=== PATIENT | female | born 1965 | race Hispanic/Latino ===

== ENCOUNTER 2024-04-21 14:07 | Emergency (ER) | payer BC ==
[~2024-04-21] VITALS: Ht 149.9 cm; Wt 43.1 kg
[2024-04-21] MEDS: LEVETIRACETAM 500 MG/5 ML SD VIAL IV STA (14:57)
[2024-04-21] MEDS: 0.9%NACL 1000ML 1,000 ML IV ONE (14:57)
[2024-04-21 15:01] LABS: BASOPHILS # (AUTO) 0.02 K/uL (0.00-0.20); BASOPHILS % (AUTO) 0.2 % (0.0-5.0); EOSINOPHILS # (AUTO) 0.17 K/uL (0.00-0.70); EOSINOPHILS % (AUTO) 1.9 % (0.0-8.0); HEMATOCRIT 30.5 % (36-48); IMMATURE GRANULOCYTE ABSOLUTE 0.02 K/uL (0-1); LYMPHOCYTES # (AUTO) 1.7 K/uL (1.0-4.8); LYMPHOCYTES % (AUTO) 18.9 % (21.0-51.0); MEAN CORPUSCULAR HEMOGLOBIN 28.3 pg (27.0-33.0); MEAN CORPUSCULAR HGB CONC 35.4 g/dL (32.0-36.0); MEAN CORPUSCULAR VOLUME 79.8 fL (79-99); MONOCYTES # (AUTO) 0.7 K/uL (0.1-1.0); MONOCYTES % (AUTO) 7.7 % (3.0-13.0); NEUTROPHILS # (AUTO) 6.4 K/uL (1.8-7.7); NEUTROPHILS % (AUTO) 71.1 % (40.0-77.0); PLATELET COUNT (AUTO) 195 K/uL (130-400); RED BLOOD CELL COUNT(AUTO) 3.82 MIL/uL (4.00-5.50); RED CELL DISTRIBUTION WIDTH 11.6 % (11.0-15.5)
[2024-04-21 15:11] LABS: CREATININE 0.8 mg/dL (0.5-1.0)
[2024-04-21 15:20] LABS: ALBUMIN 3.3 g/dL (3.5-5.0); BILIRUBIN,TOTAL 0.3 mg/dL (0.2-1.0)
[2024-04-21 15:25] LABS: B-TYPE NATRIURETIC PEPTIDE 22 pg/mL (0-100)
[2024-04-21 15:30] LABS: BILIRUBIN,DIRECT 0.1 mg/dL (0.0-0.3)
[2024-04-21 17:36] LABS: AMPHET/METH SCREEN,URINE NEGATIVE (NEGATIVE); BARBITURATE SCREEN, URINE NEGATIVE (NEGATIVE); BENZODIAZEPINES SCREEN,URINE NEGATIVE (NEGATIVE); CANNABINOID SCREEN,URINE NEGATIVE (NEGATIVE); COCAINE SCREEN,URINE NEGATIVE (NEGATIVE); OPIATE SCREEN,URINE NEGATIVE (NEGATIVE); PHENCYCLIDINE SCREEN,URINE NEGATIVE (NEGATIVE)
[2024-04-21 20:59] VITALS: BP 166/98; PULSE 90; RESP 18; O2SAT 98
== END 2024-04-21 21:03 | disposition left against medical advice (07) ==
LOC: EDH 14:07
DX: R56.9 Unspecified convulsions (principal); F41.9 Anxiety disorder, unspecified; E11.9 Type 2 diabetes mellitus without complications; E78.00 Pure hypercholesterolemia, unspecified; I10 Essential (primary) hypertension; Z90.49 Acquired absence of other specified parts of digestive tract
CPT/HCPCS: 99284; 96365; 70450; 71045; 80076; 84484; 80048; 83880; 80305; 85025; 36415; 93005; J1953; J7030

== ENCOUNTER 2025-10-21 05:52 | Emergency (ER) | payer BC ==
[~2025-10-21] VITALS: Ht 149.9 cm; Wt 49.9 kg
[~2025-10-21 05:52] MED LIST: AMLO5TAB4 PO; INSU200I SQ; INSU3INS3 SQ
--- NOTE | 2025-10-21 06:15 | ERN ---
General Chief Complaint: Hypertension Stated Complaint: C/O HIGH B/P, CP, SOB Time Seen by MD: 05:58 History of Present Illness Initial Comments 60-year-old female history of hypertension, diabetes here for evaluation of chest pain and shortness of breath. As per family member who was at bedside, patient developed high blood pressure about 1 hour ago and started having trouble breathing. Associated signs and symptoms include dry throat, trouble swallowing and cough. Patient states she was in her normal state of health yes terday. No sick contacts Allergies: Coded Allergies: Penicillins (Unverified Allergy, Unknown, 04/21/24) Home Meds Active Scripts Insulin Lispro (Humalog Kwikpen) 200 Unit/Ml (3 Ml) Insuln.pen, 2 UNIT SQ TID, #1 SYRINGE 1 Refill Prov:SAMANTA THORPE MD 07/13/25 Insulin Glargine,Hum.rec.anlog (Lantus Solostar) 100 Unit/Ml (3 Ml) Insuln.pen, 10 UNIT SQ HS for 30 Days, #5 ML 1 Refill Prov:SAMANTA THORPE MD 07/13/25 Amlodipine Besylate (Norvasc 5Mg Tab) 5 Mg Tablet, 5 MG PO DAILY for 30 Days, #30 TAB 1 Refill Prov:SAMANTA THORPE MD 07/13/25 Past Medical History Past Medical History: Diabetes-Type II, Hypertension Past Surgical History: Other Surgical History Other: CRANIOTOMY EENTM: (+) throat pain Respiratory: (+) short of breath Cardiovascular: (+) chest pain Review of Systems: was completed, & the rest were negative. Physical Exam General Appearance: (+) no apparent distress Orientation: (+) alert, (+) oriented x 3 Ear, Nose, Throat: (+) hearing grossly normal Ear, Nose, Throat Comment Dry lips, 2+ tonsils. No obvious exudate Neck: (+) normal inspection, (+) supple Respiratory: (+) chest non-tender, (+) well ventilated Heart: (+) regular; (-) murmur (The the I wanted Donnie Pedro's. Rachna's on has a who was at your 1st time as per day were here at the Street so we have a we need five intubation here in her I am here for the next four five days off and on carbs call Brias Maria Elena type has not really it was not really using one four year they) Results Laboratory and Microbiology Lab and Micro Result Laboratory Tests Test 10/21/25 06:23 10/21/25 07:09 10/21/25 08:10 White Blood Count 9.8 K/uL (4.8-10.8) Red Blood Count 4.03 MIL/uL (4.00-5.50) Hemoglobin 11.3 g/dL (12.0-16.0) L Hematocrit 33.0 % (36-48) L Mean Corpuscular Volume 81.9 fL (79-99) Mean Corpuscular Hemoglobin 28.0 pg (27.0-33.0) Mean Corpuscular Hemoglobin Concent 34.2 g/dL (32.0-36.0) Red Cell Distribution Width 11.9 % (11.0-15.5) Platelet Count 277 K/uL (130-400) Mean Platelet Volume 11.8 fL (7.5-10.5) H Immature Granulocyte % (Auto) 0.2 % (0-1) Neutrophils (%) (Auto) 51.9 % (40.0-77.0) Lymphocytes (%) (Auto) 36.8 % (21.0-51.0) Monocytes (%) (Auto) 6.2 % (3.0-13.0) Eosinophils (%) (Auto) 4.5 % (0.0-8.0) Basophils (%) (Auto) 0.4 % (0.0-5.0) Neutrophils # (Auto) 5.1 K/uL (1.8-7.7) Lymphocytes # (Auto) 3.6 K/uL (1.0-4.8) Monocytes # (Auto) 0.6 K/uL (0.1-1.0) Eosinophils # (Auto) 0.44 K/uL (0.00-0.70) Basophils # (Auto) 0.04 K/uL (0.00-0.20) Absolute Immature Granulocyte (auto 0.02 K/uL (0-1) Nucleated Red Blood Cells 0.0 % (0.0-0.19) Sodium Level 135 mmol/L (136-145) L Potassium Level 4.4 mmol/L (3.5-5.1) Chloride Level 100 mmol/L (101-111) L Carbon Dioxide Level 29 mmol/L (21-32) Blood Urea Nitrogen 45 mg/dL (7-18) H Creatinine 1.8 mg/dL (0.5-1.0) H Glomerular Filtration Rate Calc 32 mL/min (>90) Random Glucose 165 mg/dL (70-105) H Total Calcium 8.9 mg/dL (8.5-10.1) Troponin I High Sensitivity 12 ng/L (4-50) Influenza Type A Antigen Negative For Type A Influenza Type B Antigen Negative For Type B SARS-CoV-2 Antigen (Rapid) PRESUMPTIVE NEGATIVE Group A Streptococcus Rapid negative (NEGATIVE) Whole Blood Glucose 174 MG/DL (70-110) H Urine Color LIGHT-YELLOW (YELLOW) Urine Appearance CLEAR (CLEAR) Urine pH 6.0 (5.0-8.0) Urine Specific [place] 1.019 (1.001-1.031) Urine Protein 300 mg/dL (NEGATIVE) H Urine Glucose (UA) 500 mg/dL (NEGATIVE) H Urine Ketones NEGATIVE mg/dL (NEGATIVE) Urine Occult Blood NEGATIVE (NEGATIVE) Urine Nitrate NEGATIVE (NEGATIVE) Urine Bilirubin NEGATIVE mg/dL (NEGATIVE) Urine Urobilinogen 0.2 mg/dL (0.2-1.0) Urine Leukocyte Esterase NEGATIVE Umer/uL Urine Opiates Screen NEGATIVE (NEGATIVE) Urine Barbiturates Screen NEGATIVE (NEGATIVE) Urine Phencyclidine Screen NEGATIVE (NEGATIVE) Urine Amphetamines Screen NEGATIVE (NEGATIVE) Urine Benzodiazepines Screen NEGATIVE (NEGATIVE) Urine Cocaine Screen NEGATIVE (NEGATIVE) Urine Marijuana (THC) Screen POSITIVE (NEGATIVE) H EKG/XRAY/US/CT/MRI EKG: (+) NSR; (-) ST elevation EKG Comment Normal sinus rhythm with a rate of 79, AL 132, QRS 100, QT 375, left axis deviation. No STEMI. MDM MDM: Differential diagnosis: Rationale: Tests considered and ordered secondary to shared decision making include: Previous outside records reviewed: Old ER visits. Risk of complication and/or morbidity or mortality of patient management: None Medications-Per medication reconciliation Need for hospitalization: Patient does not meet criteria for hospitalization. Need for emergency major/minor surgery: No 60-year-old female here for evaluation of chest pain and shortness a breath. Patient also noted to have elevated blood pressure while here. We will get cardiac workup at this time. Disposition pending results of labs and imaging. Case will be endorsed to morning/daytime physician, Dr. Genao at the end of my shift. Patient was hydrated with IV fluids states he feels better we will be discharged in stable condition. Patient also states that she has been has been the back pain for some time. Medication will be provided for symptomatic relief. I also counseled her on cannabis avoidance. ED Course Orders Procedure Category Date Status Time Cbc With Differential LAB 10/21/25 Complete 05:58 Basic Metabolic Panel LAB 10/21/25 Complete 05:58 Urinalysis Profile LAB 10/21/25 In Process 05:58 Troponin I High LAB 10/21/25 Complete Sensitivity 06:00 Chest 1vw RAD 10/21/25 Resulted 06:00 12 Lead Ekg Tracing- EKG 10/21/25 Complete Technical 06:00 Hydralazine 20mg Inj PHA 10/21/25 Complete (Apresoline 20mg In 06:30 Influenza Type A & B, LAB 10/21/25 Complete Rapid 06:05 Covid19 (Sars Antigen LAB 10/21/25 Complete Rapid) 06:05 Rapid (Group A Strep) LAB 10/21/25 Complete 06:05 Hydralazine 20mg Inj PHA 10/21/25 Complete (Apresoline 20mg In 06:09 Ct Head/Brain W/O CT 10/21/25 Resulted Contrast 06:32 0.9%Nacl 1000ml (Ns PHA 10/21/25 Complete 1000ml) 07:30 Drug Screen Urine LAB 10/21/25 Complete 07:14 Current Medications Medications (Trade) Dose Ordered Sig/Michael Route PRN Reason Start Time Stop Time Status Last Admin Dose Admin Hydralazine HCl (APRESOLine 20MG INJ) 20 mg ONCE ONCE IV 10/21/25 06:30 10/21/25 06:31 DC 10/21/25 06:14 Hydralazine HCl (APRESOLine 20MG INJ) 20 mg STK-MED ONCE .ROUTE 10/21/25 06:09 10/21/25 06:09 DC Sodium Chloride 1,000 ml @ 0 mls/hr ONCE ONCE IV 10/21/25 07:30 10/21/25 07:31 DC 10/21/25 07:40 Vital Signs Date Time Temp Pulse Resp B/P (MAP) Pulse Ox O2 Delivery O2 Flow Rate FiO2 10/21/25 07:10 98.4 83 16 119/56 99 Room Air* 0 21 10/21/25 06:14 245/151 10/21/25 06:11 98.4 79 18 214/110 98 Room Air* 0 10/21/25 05:54 95.5 81 20 242/108 99 Room Air DX & DISP Disposition: Discharge Departure Impression: Primary Impression: Cannabis abuse Additional Impressions: Dehydration, Acute on chronic back pain Condition: Stable Scripts Lidocaine (Lidocaine Pain Relief) 4 % Adh..patch 1 PATCH TP DAILY for 7 Days, #7 PATCH 0 Refills Prov: LIUDMILA GENAO MD 10/21/25 Additional Instructions: FOLLOW-UP WITH PRIMARY CARE PROVIDER IN 1 TO 2 DAYS. TAKE MEDICATIONS DIRECTED HERE IN THE EMERGENCY ROOM. OKAY TO CONTINUE HOME MEDICATIONS UNLESS OTHERWISE DISCUSSED DURING YOUR VISIT IN THE EMERGENCY ROOM TODAY. RETURN TO [facility] EMERGENCY ROOM IF SYMPTOMS WORSEN OR IF THERE IS NO IMPROVEMENT. CALL 911 IF YOU NEED IMMEDIATE ASSISTANCE. TAKE TYLENOL [id number] NEEDED AND IF NO CONTRAINDICATIONS ARE PRESENT. INCREASE ORAL HYDRATION. A WOUND CULTURE OR URINE CULTURE WAS ORDERED HERE IN THE EMERGENCY ROOM DEPARTMENT PLEASE FOLLOW-UP WITH PRIMARY CARE PROVIDER AND ADVISE THEM TO GET REPORTS FROM OUR FACILITY. IF YOU HAD ANY NANDO WRAP/SPLINTS THAT WERE APPLIED HERE, PLEASE DO NOT REMOVE THEM UNTIL YOU SEE YOUR PRIMARY CARE OR SPECIALTY. Referrals: Referrals: SELF,REFERRAL (PCP) Time of Disposition: 08:40 VALERIE MELÉNDEZ MD Oct 21, 2025 06:15 LIUDMILA GENAO MD Oct 21, 2025 08:42
[2025-10-21 06:33] LABS: IMMATURE GRANULOCYTE ABSOLUTE 0.02 K/uL (0-1); NUCLEATED RED BLOOD CELLS 0.0 % (0.0-0.19); PLATELET COUNT (AUTO) 277 K/uL (130-400); RED BLOOD CELL COUNT(AUTO) 4.03 MIL/uL (4.00-5.50); RED CELL DISTRIBUTION WIDTH 11.9 % (11.0-15.5); WHITE BLOOD COUNT (AUTO) 9.8 K/uL (4.8-10.8)
--- NOTE | 2025-10-21 06:33 | EKG ---
[facility] Test Date: 2025-10-21 Test Time: 06:08:45 Pat Name: WILY ABURTO Department: ED Room: Gender: F Oncologist: [id number] : 1965 Requested By: VALERIE MELÉNDEZ Order Number: [id number] Reading MD: Mary Zazueta Measurements Intervals [place] Rate: 79 P: -25 DE: 132 QRS: -43 QRSD: 100 T: 78 QT: 375 QTc: 429 Interpretive Statements Sinus rhythm Left axis deviation Compared to ECG 07/11/2025 03:23:01 Left-axis deviation now present Electronically Signed On 10-21-2025 10:31:21 [employer]PER by Mary Zazueta Please click the below link to view image of tracing.
[2025-10-21 06:41] LABS: CREATININE 1.8 mg/dL (0.5-1.0); GLOMERULAR FILTR. RATE CALC 32.0 mL/min (>90); GLUCOSE,RANDOM 165.0 mg/dL (70-105); SODIUM SERUM 135.0 mmol/L (136-145); UREA NITROGEN, BLOOD 45.0 mg/dL (7-18)
--- NOTE | 2025-10-21 06:43 | HMCIMG ---
EXAM: CR Chest, single view. CLINICAL HISTORY: Chest pain. Shortness of breath. COMPARISON: Prior chest radiograph dated July 10, 2025. FINDINGS: The lungs show no infiltrate or other acute findings. No pleural effusion or pneumothorax. The cardiomediastinal silhouette is within normal limits. No acute osseous abnormality. IMPRESSION: No acute cardiopulmonary pathology is evident. Compared to the prior study, there is no significant interval change. /[place]
[2025-10-21 06:46] LABS: RAPID GROUP A STREP negative (NEGATIVE)
[2025-10-21 06:55] LABS: COVID19 (SARS ANTIGEN RAPID) PRESUMPTIVE NEGATIVE (NEGATIVE)
[2025-10-21 06:56] LABS: INFLUENZA TYPE A Negative For Type A (NEGATIVE); INFLUENZA TYPE B Negative For Type B (NEGATIVE)
[2025-10-21] MEDS: 0.9%NACL 1000ML 1,000 ML IV ONE (07:40)
[2025-10-21 08:20] LABS: APPEARANCE,URINE CLEAR (CLEAR); GLUCOSE, URINE (UA) 500 mg/dL (NEGATIVE); LEUKOCYTE ESTERASE ,URINE NEGATIVE Leu/uL (NEGATIVE); NITRATE,URINE NEGATIVE (NEGATIVE); OCCULT BLOOD,URINE NEGATIVE (NEGATIVE)
[2025-10-21 08:26] LABS: ADD UA MICROSCOPIC YES
[2025-10-21 08:28] LABS: AMPHET/METH SCREEN,URINE NEGATIVE (NEGATIVE); BARBITURATE SCREEN, URINE NEGATIVE (NEGATIVE); CANNABINOID SCREEN,URINE POSITIVE (NEGATIVE); COCAINE SCREEN,URINE NEGATIVE (NEGATIVE)
--- NOTE | 2025-10-21 08:34 | HMCIMG ---
EXAM: CT Head Without IV contrast. CLINICAL HISTORY: Headache. Systolic blood pressure 230 mmHg. TECHNIQUE: Axial computed tomography images of the head/brain without intravenous contrast. COMPARISON: CT brain from July 11, 2025. FINDINGS: BRAIN: No evidence of acute hemorrhage. No mass lesion. No CT evidence for acute territorial infarct. No midline shift or extra-axial collections. Mild age-related cerebral atrophy and chronic small vessel ischemic changes are present. VENTRICLES: No hydrocephalus. ORBITS: The orbits are unremarkable. SINUSES AND MASTOIDS: The paranasal sinuses and mastoid air cells are clear. BONES: No fracture. Post-frontal craniotomy changes are noted. SOFT TISSUES: Unremarkable. IMPRESSION: No acute intracranial abnormality. Mild age-related cerebral atrophy with chronic small vessel ischemic changes. Findings are similar to the prior study. Recommend MRI brain for further evaluation. /[place]
[2025-10-21 08:39] LABS: SQUAMOUS EPITHELIAL CELL,UR Rare /HPF (0-2)
[2025-10-21] MEDS ORDERED: LIDO1ADH71 TP (08:42)
--- NOTE | 2025-10-21 10:07 | HMCIMG ---
EXAM: CT Abdomen and Pelvis Without IV contrast CLINICAL HISTORY: Lower abdominal pain. TECHNIQUE: Axial computed tomography images of the abdomen and pelvis without intravenous contrast. CONTRAST: No IV contrast. COMPARISON: None provided. FINDINGS: LUNG BASES: The lung bases appear clear. No pleural effusions are seen. LIVER: Unremarkable. GALLBLADDER AND BILE DUCTS: The gallbladder appears within normal limits. No radioopaque gallstones are seen. No biliary ductal dilatation is evident. PANCREAS: Unremarkable. SPLEEN: Unremarkable. ADRENAL GLANDS: Unremarkable. KIDNEYS, URETERS, AND BLADDER: The kidneys appear within normal limits. There is no hydronephrosis or hydroureter. No urinary calculi are seen. The urinary bladder is underdistended with diffuse wall thickening measuring approximately 6 mm. STOMACH AND BOWEL: Unremarkable appearance of the stomach and bowel. No evidence of bowel obstruction. No evidence suggesting enteritis or colitis. Mild fecal loading is noted in the colon. APPENDIX: No evidence of acute appendicitis on CT examination. PERITONEUM: No free fluid. No free air. LYMPH NODES: No lymphadenopathy is evident. REPRODUCTIVE: A 14 x 11 mm hypodense lesion in the anterior uterine wall is likely an intramural fibroid. VASCULATURE: No evidence of abdominal aortic aneurysm. ABDOMINAL WALL / SOFT TISSUES: Mild soft tissue thickening is noted at the umbilicus. Left inguinal fat-containing hernia is present. BONES: No aggressive appearing osseous lesion. No acute osseous pathology evident. Mild lumbar spine degenerative changes present. IMPRESSION: No acute intra-abdominal or pelvic abnormality. Small anterior uterine wall intramural fibroid measuring 14 x 11 mm. A pelvic ultrasound may be considered for correlation of the uterine fibroid if clinically indicated. Underdistended urinary bladder with diffuse wall thickening, concerning for cystitis. Urinalysis and urine culture are recommended to evaluate for cystitis. Mild fecal loading of the colon. Mild soft tissue thickening at the umbilicus, likely representing infectious or inflammatory change. /[place]
[2025-10-21] MEDS ORDERED: NITR100C PO (10:21)
[2025-10-21] MEDS ORDERED: MAGN296S73 PO (10:21)
[2025-10-21 10:40] VITALS: BP 140/62; PULSE 83; RESP 16; TEMP 98.4; O2SAT 99
== END 2025-10-21 10:43 | disposition home or self-care (01) ==
LOC: EDH 05:52
DX: F12.10 Cannabis abuse, uncomplicated (principal); E86.0 Dehydration; G89.29 Other chronic pain; E11.9 Type 2 diabetes mellitus without complications; I10 Essential (primary) hypertension; Z79.899 Other long term (current) drug therapy; Z79.4 Long term (current) use of insulin; Z88.0 Allergy status to penicillin; Z98.890 Other specified postprocedural states; Z20.822 Contact with and (suspected) exposure to COVID-19
CPT/HCPCS: 99285; 70450; 96374; 71045; 96361; 96375; 87426; 84484; 80048; 80305; 85025; 87880; 87804 ×2; 82948; 36415; 74176; 93005; 81001; J1885; J0360; 96365